=== PATIENT | female | born 1945 | race Caucasian/White ===

== ENCOUNTER 2017-06-29 00:46 | Inpatient (IN) | payer OTHER ==
[~2017-06-29] VITALS: Ht 154.9 cm; Wt 73.5 kg
[2017-06-29] VITALS (7 sets, daily range): BP systolic 132–194; BP diastolic 72–102
[~2017-06-29 00:46] MED LIST: BUPROPION HCL150 M3; CRESTOR5 M1 PO; DETROL LA4 M1 PO; EFFEXOR XR150 M1 PO; EFFEXOR XR75 M1 PO; ESGIC 50-325-41 EACH; LOSARTAN POTASS50 M1 PO; MELATONIN5 M5; NEURONTIN300 M1 PO; NEXIUM20 M1 PO; TYLENOL EXTRA500 M2 PO; ULTRAM50 M1 PO; VESICARE5 M1 PO
[2017-06-29] MEDS ORDERED: TOPAMAX25 M3 PO (07:00)
--- NOTE | 2017-06-29 08:34 | Admission Core Measures ---
Acute Coronary Syndrome (CM) ACS Core Measures Acute Coronary Syndrome Diagnosis No Congestive Heart Failure (NEW) CHF Core Measures Congestive Heart Failure Diagnosis No Cerebrovascular Accident (NEW) CVA Core Measures CVA/TIA Diagnosis No Venous Thromboembolism VTE Core Iliana (View Protocol) VTE Risk Factors Surgery No Mechanical VTE Prophylaxis d/t N/A MechProphylax Ordered No VTE Pharm Prophylaxis d/t NA PharmProphylax ordered Problem List As ranked by this Provider includes Assessment & Plan 1. Osteoarthritis (arthritis due to wear and tear of joints) HOME MEDS Home Med List Acetaminophen (Tylenol Extra Strength) 500 MG TABLET 1 TAB PO TID PAIN ( Reported) Esomeprazole Magnesium (Nexium) 20 MG CAPSULE.DR 1 CAP PO DAILY GASTRIC ( Reported) Gabapentin (Neurontin) 300 MG CAPSULE 1 CAP PO 4 TIMES/DAY PAIN (Reported) Losartan Potassium 50 MG TABLET 1 TAB PO DAILY HTN (Reported) Rosuvastatin Calcium (Crestor) 5 MG TABLET 1 TAB PO DAILY CHOLESTEROL ( Reported) Solifenacin Succinate (Vesicare) 5 MG TABLET 1 TAB PO DAILY OAB (Reported) Tolterodine Tartrate (Detrol LA) 4 MG CAP.ER.24H 1 CAP PO DAILY OAB (Reported ) Topiramate (Topamax) 25 MG TABLET 1 TAB PO EVERY ANNIKA HEADACH (Reported) Tramadol HCl (Ultram) 50 MG TABLET 1 TAB PO Q6P PRN PAIN (Reported) Venlafaxine HCl (Effexor XR) 75 MG CAP.ER.24H 1 CAP PO BED DEPRESSION ( Reported) Venlafaxine HCl (Effexor XR) 150 MG CAP.ER.24H 1 CAP PO BED DEPRESSION ( Reported)
--- NOTE | 2017-06-29 08:37 | Surgical Discharge Summary ---
Visit Information Visit Dates Admission Date: 06/29/17 Discharge Date: 07/02/17 History of Present Illness Chief Complaint: HIP PAIN Surgical History Pertinent Surgical History: hip replacement Review of Systems: SEE HPI Hospital Course Course Attending Physician: Christiano Martin MD Primary Care Physician: Fidel Waller MD Hospital Course: Patient was taken to the operating room on 06/29/17 and underwent a right total hip replacement by Dr. Martin. He did well intraoperatively and was ultimately transferred to the surgical floor in stable condition. Her diet was advanced and her IVF were stopped. Her pain was well controlled. After evaluation by PT , she required cont PT and rehab and was transferred to snf. She will follow up with Dr. Martin in 6 weeks. Allergies: Coded Allergies: aspirin (Intermediate, GI UPSET 06/29/17) ASA PER ANTIBIOTIC ORDER SHEET OF 06/26/17 ([facility]) codeine (Intermediate, ITCHY EARS AND THROAT, N/V 06/29/17) CODEINE PHOSPHATE PER ANTIBIOTIC ORDER SHEET OF 06/26/17 ([facility]) PER SDS ON 06/26/17: PT GETS NAUSEOUS FROM "TOO MUCH" CODEINE, NOT REALLY AN ALLERGY PER SDS ([facility]) Disposition Summary Disposition Principal Diagnosis: primary unilateral osteoarthritis of the hip Additional Diagnosis: sp R GREGOR Discharge Disposition: SNF Discharge Instructions General Discharge Information Code Status: Full Code Patient's Diet: Regular Patient's Activity: as tolerated per PT Follow-Up Instructions/Appts: Dr. Martin- call for follow up appointment (6 week) Medications at Discharge Discharge Medications: Stop taking the following medications: Tramadol HCl (Ultram) 50 MG TABLET ORAL EVERY SIX HOURS NEEDED as needed for PAIN Acetaminophen (Tylenol Extra Strength) 500 MG TABLET ORAL THREE TIMES DAILY Continue taking these medications: Venlafaxine HCl (Effexor XR) 75 MG CAP.ER.24H 1 Capsule ORAL BED Venlafaxine HCl (Effexor XR) 150 MG CAP.ER.24H 1 Capsule ORAL BED Comments: TOTAL DOSE = 225MG DAILY AT BEDTIME Gabapentin (Neurontin) 300 MG CAPSULE 1 Capsule ORAL 4 TIMES A DAY Losartan Potassium (Losartan Potassium) 50 MG TABLET 1 Tablet ORAL DAILY Rosuvastatin Calcium (Crestor) 5 MG TABLET 1 Tablet ORAL DAILY Esomeprazole Magnesium (Nexium) 20 MG CAPSULE.DR 1 Capsule ORAL DAILY Butalb/Acetaminophen/Caffeine (Esgic 50-325-40 MG Tablet) 50 MG-325 MG-40 MG TABLET Instructions: DAILY USE Bupropion HCl (Bupropion HCl Sr) 150 MG TABLET.ER Solifenacin Succinate (Vesicare) 5 MG TABLET 1 Tablet ORAL DAILY Melatonin (Melatonin) 5 MG CAPSULE Tolterodine Tartrate (Detrol LA) 4 MG CAP.ER.24H 1 Capsule ORAL DAILY Topiramate (Topamax) 25 MG TABLET 1 Tablet ORAL EVERY ANNIKA Start taking the following new medications: Hydromorphone HCl (Dilaudid) 2 MG TABLET 1-2 Tablet ORAL EVERY 4 HOURS NEEDED as needed for PAIN Qty = 36 No Refills Aspirin (Aspirin*) 325 MG TABLET 1 Tablet ORAL TWICE DAILY Qty = 56 No Refills Docusate Sodium (Colace) 100 MG CAPSULE 1 Capsule ORAL TWICE DAILY Qty = 14 No Refills Polyethylene Glycol 3350 (Miralax) 17 GRAM POWD.PACK 1 Packet ORAL DAILY Qty = 7 No Refills Instructions: dissolve in water
--- NOTE | 2017-06-29 08:43 | Patient Discharge Instructions ---
Discharge Instructions General Discharge Information You were seen/treated for: unilateral osteoarthritis You had these procedures: total hip replacement-right side Watch for these problems: increased pain, redness of incision, drainage from incision, fevers Other wound care: Please keep wound clean and dry. No ointments or lotions of any type on or near incision at any time. No exceptions. Your dressing will be changed by your nurse on the second day after your surgery. Daily dry dressing changes are recommended each day thereafter. Do not soak your wound in a bath at any time until otherwise indicated by your surgeon. You may shower, please dry wound immediately after shower with a clean towel. Special Instructions: Aspirin: You are taking this medication to help prevent blood clot formation. Please take with food to protect your stomach lining. Please take as directed. Constipation: Pain medication can cause constipation. Dr. Matrin has recommended that you take Colace and miralax each day. You may discontinue this medication if you develop loose stool or diarrhea. If you wish to continue this medication, it is available over the counter. If you are unable to move your bowels after several days, if you are unable to pass gas and are developing bloating, nausea, or vomiting as a result, please contact your doctor. Diet Continue normal diet: Yes Activity Full Activity/No Limits: Yes Activity Self Limited: Yes (per PT recommendations) Acute Coronary Syndrome Inclusion Criteria At DC or during hospital stay patient has or had the following: ACS DIAGNOSIS No Discharge Core Measures Meds if any: Prescribed or Continued at Discharge Meds if any: NOT Prescribed or Continued at Discharge Congestive Heart Failure Inclusion Criteria At DC or during hospital stay patient has or had the following: CHF DIAGNOSIS No Discharge Core Measures Meds if any: Prescribed or Continued at Discharge Meds if any: NOT Prescribed or Continued at Discharge Cerebrovascular accident Inclusion Criteria At DC or during hospital stay patient has or had the following: CVA/TIA Diagnosis No Discharge Core Measures Meds if any: Prescribed or Continued at Discharge Meds if any: NOT Prescribed or Continued at Discharge Venous thromboembolism Inclusion Criteria VTE Diagnosis No VTE Type NONE VTE Confirmed by (Test) NONE Discharge Core Measures - Per Current guidelines, there needs to be overlap - treatment for the first 5 days of Warfarin therapy. - If discharged on Warfarin prior to 5 days of - overlap therapy, the patient will need to be - assessed for post discharge needs including - *Post discharge parental anticoagulation - *Warfarin and/or parental anticoagulation education - *Follow up date to check INR post discharge At least 5 days overlap therapy as Inpatient No Meds if any: Prescribed or Continued at Discharge Note: Overlap Therapy is Warfarin and Anticoagulant Meds if any: NOT Prescribed or Continued at Discharge
[2017-06-29] MEDS ORDERED: MIRALAX17 G1 PO (08:47)
[2017-06-29] MEDS ORDERED: ASPIRIN325 M2 PO (08:47)
[2017-06-29] MEDS ORDERED: COLACE100 M1 PO (08:47)
[2017-06-29] MEDS ORDERED: DILAUDID2 M1 PO (08:47)
--- NOTE | 2017-06-29 10:37 | RADIOLOGY REPORT ---
EXAMINATION: XR HIP, RIGHT CLINICAL INFORMATION: Status post right total hip arthroplasty. COMPARISON: None TECHNIQUE: Two views of the right hip. FINDINGS: Evaluation of the lateral view is limited. However, the total right hip arthroplasty appears intact and anatomic in alignment. No hardware failure or [place] bone fracture is seen. Cerclage wire is noted along the proximal femoral shaft and is intact. A soft tissue drain is seen projected over the superior aspect of the femoral neck. IMPRESSION: Anatomic alignment status post total hip arthroplasty with no hardware failure or [place] bone fracture seen.
--- NOTE | 2017-06-29 13:32 | PN- Orthopedic ---
Subjective Subjective: Patient arrived on surgical floor following total hip replacement. Complaining of pain presently. Denies chest pain, shortness of breath, and difficulty breathing. Denies nausea and vomitting. Has yet to ambulate. Objective Vital Signs and I&Os Vital Signs Date Time Temp Pulse Resp B/P B/P Pulse O2 O2 Flow FiO2 Mean Ox Delivery Rate 06/29 1210 98.0 82 20 132/80 96 Room Air Intake & Output 06/29 1600 06/29 0000 06/28 1600 06/28 0000 Intake Total Output Total Balance Patient 162 lb Weight Weight Reported by Patient Measurement Method Physical Exam: General: Alert and oriented x3, no acute distress Cardiac: RRR, s1s2 Pulm: CTA bilaterally ABD: Soft, non-tender, non-distended Extremities: Moves all extremities, distal sensation intact. Skin warm and well perfused. Bilateral dp pulses palpable. Bilateral calves soft and non- tender. Surgical site: Right hip. Dressing intact, saturated distally with blood leaking from hemovac insertion site. Blood dripping through disruption in adhesion of tegaderm to skin. Saturated gauze removed, redressed around drain site with vaseline gauze and sterile 4x4, topped with tegaderm. Hemovac holds suction. Assessment/Plan Assessment/Plan This is a 72 year old POD 0 s/p R GREGOR -Continue to monitor dressing, reinforce prn, will remove drain likely tomorrow am -OOB, WBAT -Regular diet, advance as tolerated -IV fluids tonight, will dc in am -ASA 325 bid for dvt ppx to start tonight -ABX ppx, ancef x 2 additional doses -Bowel regimen to begin tonight -PO and iv pain regimen -Continue home meds -Will discuss poc with Dr. Martin Core Measures Venous Thromboembolism VTE Risk Factors Surgery No Mechanical VTE Prophylaxis d/t N/A MechProphylax Ordered No VTE Pharm Prophylaxis d/t NA PharmProphylax ordered
--- NOTE | 2017-06-29 15:40 | Operative Report ---
Operative/Inv Procedure Report Surgery Date: 06/29/17 Name of Procedure: Right total hip replacement Pre-Operative Diagnosis: Primary right hip DJD Post-Operative Diagnosis: Same Estimated Blood Loss: 300 Surgeon/[employer] Operator: Veronica POSEY,Christiano Smallwood Anesthesia: block Operative/Procedure Note Note: Description of Procedure: The patient was taken to the operating room and positively identified. After induction of spinal anesthesia and administration of appropriate pre-operative antibiotics, the patient was positioned supine on the operating room table and all bony prominences were well padded. After performing a surgical timeout, the right lower extremity was prepped and draped in the usual sterile fashion. A direct anterior approach was made to the right hip. The incision was carried sharply through superficial soft tissues to the level of the fascia. Meticulous hemostasis was maintained with Bovie electocautery. The fascia over the tensor fascia corinne muscle was opened sharply and the interval between the TFL and the sartorius was entered bluntly taking care to stay lateral to the lateral femoral cutaneous nerve. Retractors were placed around the femoral neck and the pericapsular fat was identified. The ascending branches of the lateral femoral circumflex vessels were identified and carefully coagulated. The pericapsular fat and anterior capsule were then resected. A napkin ring osteotomy was performed and the femoral head was removed without difficulty. Attention was then turned to the acetabulum. After appropriate placement of retractors, the acetabulum was exposed. Soft tissue was cleaned from the acetabular margin and notch. Overhanging osteophytes were removed and the teardrop was exposed. The acetabulum was then sequentially reamed to accept a 54 mm [place] Trident Tritanium hemispherical shell. This was impacted into place in the appropriate position and a single screw was used for supplemental fixation. It was then fit with a 36 mm eccentric Trident X3 zero degree polyethylene insert. Attention was then turned to the femur. After performing the appropriate ligament releases, the proximal femur was exposed. It was then sequentially broached to accept a size #4 Hobson Accolade 2 stem. This was trialed for leg length and stability. A prophylactic Dall-Miles cable was placed. The trial component was removed and the final component was impacted into place. The trunnion was carefully cleaned and fit with a 36 mm, +2.5 Biolox delta ceramic femoral head. The hip was reduced and put through a full range of motion and found to be stable. The articular space was then irrigated with sterile saline. The periarticular soft tissues were infilitrated with Marcaine. The fascial layer was closed with interrupted #1 vicryl suture and the skin was re-approximated with interrupted 2 -0 vicryl. The skin was closed with a running 3-0 V-Lock suture. Steri-strips and a sterile dressing were applied. The patient was awakened and taken to the recovery room in satisfactory condition.
[2017-06-30 02:47] VITALS: BP 160/84
[2017-06-30 06:00] VITALS: BP 154/82
--- NOTE | 2017-06-30 07:22 | PN- Orthopedic ---
Subjective Subjective: Patient doing fairly well this morning. She is due to work with physical therapy, and has not been out of bed yet. Pain is fairly well-controlled, feels like there could be better control. She is tolerating a regular diet without any difficulty. She denies any other issues or complaints. Objective Vital Signs and I&Os Vital Signs Date Time Temp Pulse Resp B/P B/P Pulse O2 O2 Flow FiO2 Mean Ox Delivery Rate 06/30 06 98.7 91 20 154/82 93 Room Air 06/30 0247 98.7 106 20 160/84 95 Room Air 06/30 0109 84 192/102 06/29 2323 194/102 06/29 2200 97.6 84 18 182/90 97 Room Air 06/29 1800 97.5 74 20 150/80 94 Room Air 06/29 1600 97.4 76 20 146/82 94 Room Air 06/29 1457 98.7 72 20 136/72 93 04/ 1210 98.0 82 20 132/80 96 Room Air 06/29 1145 98.0 82 20 132/80 96 Room Air Intake & Output 06/30 0806/30 0000 06/29 1600 06/29 0800 06/29 0000 06/28 1600 Intake Total 425 800 Output Total 665 300 Balance -240 500 Intake, IV 225 Intake, Oral 200 800 Output, 15 Drainage Output, Urine 650 300 Patient 162 lb Weight Weight Reported by Patient Measurement Method Physical Exam: General: Alert, awake, no acute distress Right hip: Dressing is moderately saturated with serous and serosanginous strikethrough, HV in place draining sanginous fluid Extremities: Neurovascular status is intact and equal bilaterally, no clubbing, cyanosis, or edema Current Medications: Current Medications Sig/Shefali Start time Last Medication Dose Route Stop Time Status Admin Acetaminophen 1,000 MG Q6H 06/29 1945 AC 06/30 IV 06/30 0746 0701 Acetaminophen 1,000 MG Q6 06/29 1200 DC 06/29 IV 06/30 0601 1345 Acetaminophen 975 MG ONCE 06/29 0000 DC PO 06/29 2359 Aspirin 325 MG BID 06/29 2199 AC 06/29 PO 2158 Atorvastatin Calcium 20 MG 1700 06/29 1700 AC 06/29 PO 1712 Bupropion HCl 150 MG DAILY 06/30 1000 AC PO Cefazolin Sodium 2 GM IQ8 06/29 1600 DC 06/29 N/A 1 UNIT IV 06/30 0029 2344 Cefazolin Sodium 2,000 MG ONCE 06/29 0000 DC IV 06/29 2359 Docusate Sodium 100 MG BID 06/29 2199 AC 06/29 PO 2158 Gabapentin 300 MG Q8 06/29 1400 AC 06/30 PO 0700 Hydromorphone HCl 2 MG Q4P PRN 06/29 1145 AC PO Hydromorphone HCl 4 MG Q4P PRN 06/29 1145 AC 06/29 PO 2158 Ketorolac 30 MG .STK-MED ONE 06/29 182 DC Tromethamine IM 06/29 182 Ketorolac 15 MG Q8P PRN 06/29 181 AC 06/30 Tromethamine IV 0347 Losartan Potassium 50 MG DAILY 06/30 1000 DC PO Losartan Potassium 50 MG DAILY 06/29 2345 AC 06/30 PO 0109 Melatonin 5 MG AT BEDTIME 06/29 2199 AC 06/29 PO 2157 Morphine Sulfate 2 MG Q4P PRN 06/29 2345 AC 06/29 IV 2344 Morphine Sulfate 2 MG Q4P PRN 06/29 1145 DC 06/29 IV 1711 Omeprazole 20 MG DAILY AC 06/30 0700 AC 06/30 PO 0700 Ondansetron HCl 4 MG Q6P PRN 06/29 1145 AC IV Oxybutynin Chloride 2.5 MG BID 06/29 2199 AC 06/29 PO 2157 Oxycodone HCl 10 MG ONCE 06/29 0000 DC PO 06/29 2359 Polyethylene Glycol 17 GM DAILY 06/30 1000 AC PO Senna 187 MG AT BEDTIME 06/29 2199 AC 06/29 PO 2158 Sodium Chloride 1,000 ML .[id number] 06/29 1145 AC 06/30 IV 0109 Topiramate 25 MG QPM 06/29 2199 AC 06/29 PO 2158 Venlafaxine HCl 225 MG QPM 06/29 220 AC 06/29 PO 2035 Results Last 48 Hours of Labs: Laboratory Tests 06/303 Chemistry Sodium (137 - 145 mmol/L) 138 Potassium (3.5 - 5.1 mmol/L) 3.2 L Chloride (98 - 107 mmol/L) 103 Carbon Dioxide (22 - 30 mmol/L) 24 Anion Gap (5 - 16) 10 BUN (7 - 17 mg/dL) 11 Creatinine (0.5 - 1.0 mg/dL) 0.5 Estimated GFR (>60 ml/min) > 60 BUN/Creatinine Ratio (7 - 25 %) 22.0 Phosphorus (2.5 - 4.5 mg/dL) 3.4 Magnesium (1.6 - 2.3 mg/dL) 1.5 L Hematology CBC w Diff NO MAN DIFF REQ WBC (4.8 - 10.8 /CUMM) 7.4 RBC (4.20 - 5.40 /CUMM) 3.05 L Hgb (12.0 - 16.0 G/DL) 10.3 L Hct (37 - 47 %) 29.8 L MCV (81.0 - 99.0 FL) 97.7 MCH (27.0 - 31.0 PG) 33.7 H MCHC (33.0 - 37.0 G/DL) 34.5 RDW (11.5 - 14.5 %) 14.0 Plt Count (130 - 400 /CUMM) 202 MPV (7.4 - 10.4 FL) 6.9 L Gran % (42.2 - 75.2 %) 70.7 Lymphocytes % (20.5 - 51.1 %) 10.7 L Monocytes % (1.7 - 9.3 %) 17.7 H Eosinophils % (0 - 5 %) 0.6 Basophils % (0.0 - 2.0 %) 0.3 Absolute Granulocytes (1.4 - 6.5 /CUMM) 5.3 Absolute Lymphocytes (1.2 - 3.4 /CUMM) 0.8 L Absolute Monocytes (0.10 - 0.60 /CUMM) 1.3 H Absolute Eosinophils (0.0 - 0.7 /CUMM) 0 Absolute Basophils (0.0 - 0.2 /CUMM) 0 Recent Imaging Studies: Right Hip X-ray 06/29/17: Anatomic alignment status post total hip arthroplasty with no hardware failure or [place] bone fracture seen. Assessment/Plan Assessment/Plan This is a 72-year-old female with a past medical history significant for osteoarthritis, gerd, depression, htn and hyperlipidemia who is postoperative day #1 status post right total hip arthroplasty, progressing well. 1. PT evaluation, weight bearing as tolerated with a rolling walker, anticipate DC home with VNA and physical therapy tomorrow or 2. Continue current analgesia and bowel regimen 3. Continue Aspirin 325mg twice a day for DVT prophylaxis along with pneumatic compression boots 4. Continue regular diet 5. Continue Hemovac, monitor quality and quantity of output 6. Dressing change by the surgical team tomorrow 7. Home medications restarted 8. Potassium and Magnesium replaced will recheck in am 8. Patient to be discussed with Dr. Martin to make sure he is in agreement with the plan of care Problem List: 1. Osteoarthritis (arthritis due to wear and tear of joints) Core Measures Venous Thromboembolism VTE Risk Factors Surgery No Mechanical VTE Prophylaxis d/t N/A MechProphylax Ordered No VTE Pharm Prophylaxis d/t NA PharmProphylax ordered
[2017-06-30 08:26] LABS: ABSOLUTE BASOPHIL COUNT 0 /CUMM (0.0-0.2); ABSOLUTE EOSINOPHIL COUNT 0 /CUMM (0.0-0.7); ABSOLUTE GRANULOCYTE CT 5.3 /CUMM (1.4-6.5); ABSOLUTE LYMPH COUNT 0.8 /CUMM (1.2-3.4); ABSOLUTE MONOCYTE COUNT 1.3 /CUMM (0.10-0.60); BASOPHIL % 0.3 % (0.0-2.0); EOSINOPHIL % 0.6 % (0-5); GRANULOCYTE % 70.7 % (42.2-75.2); HEMATOCRIT 29.8 % (37-47); MEAN CORPUSCULAR HGB 33.7 PG (27.0-31.0); MEAN CORPUSCULAR HGB CONC 34.5 G/DL (33.0-37.0); MEAN CORPUSCULAR VOLUME 97.7 FL (81.0-99.0); MEAN PLATELET VOLUME 6.9 FL (7.4-10.4); PLATELET COUNT 202 /CUMM (130-400); RED BLOOD CELL CT 3.05 /CUMM (4.20-5.40); WHITE BLOOD CELL COUNT 7.4 /CUMM (4.8-10.8)
[2017-06-30 14:24] VITALS: BP 126/72
[2017-06-30 22:08] VITALS: BP 120/60
[2017-07-01 06:53] VITALS: BP 140/76
--- NOTE | 2017-07-01 08:02 | PN- Orthopedic ---
Subjective Subjective: feeling ok, pain well controlled w meds, ambulated w pt yesterday. kassi diet, no n/v, no cp/sob. no paresthesias. Objective Vital Signs and I&Os Vital Signs Date Time Temp Pulse Resp B/P B/P Pulse O2 O2 Flow FiO2 Mean Ox Delivery Rate 07/01 0653 98.3 86 20 140/76 92 Room Air 06/30 2208 98.6 91 19 120/60 94 Room Air 06/30 1424 98.3 74 18 126/72 92 Room Air 06/30 0951 98.7 91 20 154/82 Intake & Output 07/01 1600 07/01 0800 07/01 0000 06/30 1600 06/30 0800 06/30 0000 Intake Total 250 250 950 705 425 Output Total 300 305 665 Balance 250 250 650 400 -240 Intake, IV 10 10 150 525 225 Intake, Oral 240 240 800 180 200 Output, 5 15 Drainage Output, Urine 300 300 650 Physical Exam: GEN- NAD CARD- s1s2 RRR PULM- CTAB ABD- soft nt EXT- r hip dressing w dry serosang drainage, incision w blood stained steris ( dried), [address] superior aspect of wound, scant serosang draiange from hv site inferior to wound. extensive ecchymosis venessa-incisional and dependent to buttock/posterior thigh. calves soft nt bl, palp dp bl, gross sensate intact, gross plantar/dorsiflexion intact. clean dry dressing reapplied Results Last 48 Hours of Labs: Laboratory Tests 07/01 06/30 0730 0753 Chemistry Sodium (137 - 145 mmol/L) 138 Potassium (3.5 - 5.1 mmol/L) Pending 3.2 L Chloride (98 - 107 mmol/L) 103 Carbon Dioxide (22 - 30 mmol/L) 24 Anion Gap (5 - 16) 10 BUN (7 - 17 mg/dL) 11 Creatinine (0.5 - 1.0 mg/dL) 0.5 Estimated GFR (>60 ml/min) > 60 BUN/Creatinine Ratio (7 - 25 %) 22.0 Phosphorus (2.5 - 4.5 mg/dL) 3.4 Magnesium (1.6 - 2.3 mg/dL) Pending 1.5 L Hematology CBC w Diff NO MAN DIFF REQ WBC (4.8 - 10.8 /CUMM) 7.4 RBC (4.20 - 5.40 /CUMM) 3.05 L Hgb (12.0 - 16.0 G/DL) 10.3 L Hct (37 - 47 %) 29.8 L MCV (81.0 - 99.0 FL) 97.7 MCH (27.0 - 31.0 PG) 33.7 H MCHC (33.0 - 37.0 G/DL) 34.5 RDW (11.5 - 14.5 %) 14.0 Plt Count (130 - 400 /CUMM) 202 MPV (7.4 - 10.4 FL) 6.9 L Gran % (42.2 - 75.2 %) 70.7 Lymphocytes % (20.5 - 51.1 %) 10.7 L Monocytes % (1.7 - 9.3 %) 17.7 H Eosinophils % (0 - 5 %) 0.6 Basophils % (0.0 - 2.0 %) 0.3 Absolute Granulocytes (1.4 - 6.5 /CUMM) 5.3 Absolute Lymphocytes (1.2 - 3.4 /CUMM) 0.8 L Absolute Monocytes (0.10 - 0.60 /CUMM) 1.3 H Absolute Eosinophils (0.0 - 0.7 /CUMM) 0 Absolute Basophils (0.0 - 0.2 /CUMM) 0 Assessment/Plan Assessment/Plan A- POD2 sp R GREGOR, minor lyte imbalances yesterday- repleted, otherwise stable. P- OOB, WBAT, PT DC planning- likely hhs lytes pending, replete as needed ASA 325BID, alps prn apin meds reg diet reinforce dressing prn will dw attending Core Measures Venous Thromboembolism VTE Risk Factors Surgery No Mechanical VTE Prophylaxis d/t N/A MechProphylax Ordered No VTE Pharm Prophylaxis d/t NA PharmProphylax ordered
[2017-07-01 14:20] VITALS: BP 134/70
[2017-07-01 22:36] VITALS: BP 104/66
[2017-07-02 06:28] VITALS: BP 132/70
--- NOTE | 2017-07-02 07:46 | PN- Orthopedic ---
Subjective Subjective: PT IUN BED. WORKED WITH PT AND DID STAIRS YESTERDAY. TOLERATING DIET, VOIDING. PT SAYS SHE DOESNT HAVE THE CONFIDENCE YET TO GO HOME TODAY. DENIES FEVERS, CP, SOB Objective Vital Signs and I&Os Vital Signs Date Time Temp Pulse Resp B/P B/P Pulse O2 O2 Flow FiO2 Mean Ox Delivery Rate 07/02 0628 98.5 80 18 132/70 93 Room Air 07/02 0045 92 Nasal 1.5L Cannula 07/01 2236 98.7 76 18 104/66 92 Room Air 07/01 1420 98.9 89 20 134/70 92 Room Air 07/01 1033 86 140/76 Intake & Output 07/02 0800 07/02 0000 07/01 1600 07/01 0807/01 0000 06/30 1600 Intake Total 250 1000 250 250 950 Output Total 300 Balance 250 1000 250 250 650 Intake, IV 10 10 10 150 Intake, Oral 240 1000 240 240 800 Output, Urine 300 Physical Exam: GEN- CELIA RESP-CLEAR CARDIAC-RRR ABD- +BS, SOFT, NT EXT- RIGHT HIP SOFT, DRESSING CHANGED, NO SIGNS OF INFECTION. 2+ DP PULSE BILATERALLY. DISTAL SENSORY AND MOTOR FUNCTION INTACT Current Medications: Current Medications Sig/Shefali Start time Last Medication Dose Route Stop Time Status Admin Aspirin 325 MG BID 06/29 2199 AC 07/01 PO 2111 Atorvastatin Calcium 20 MG 1700 06/29 1700 AC 07/01 PO 1816 Bupropion HCl 150 MG DAILY 06/30 1000 AC 07/01 PO 103 Docusate Sodium 100 MG BID 06/29 2199 AC 07/01 PO 2112 Gabapentin 300 MG Q6 06/30 1200 AC 07/02 PO 0513 Hydromorphone HCl 2 MG Q4P PRN 06/29 1145 AC PO Hydromorphone HCl 4 MG Q4P PRN 06/29 1145 AC 07/02 PO 0513 Ketorolac 15 MG .STK-MED ONE 07/01 182 DC Tromethamine IM 07/01 182 Ketorolac 15 MG Q8P PRN 06/29 181 AC 07/01 Tromethamine IV 182 Losartan Potassium 50 MG DAILY 06/29 2345 AC 07/01 PO 1033 Melatonin 5 MG AT BEDTIME 06/29 2199 AC 07/01 PO 211 Morphine Sulfate 2 MG Q4P PRN 06/29 2345 AC 06/29 IV 2344 Omeprazole 20 MG DAILY AC 06/30 0700 AC 07/02 PO 0513 Ondansetron HCl 4 MG Q6P PRN 06/29 1145 AC IV Oxybutynin Chloride 2.5 MG BID 06/29 2199 AC 07/01 PO 2111 Polyethylene Glycol 17 GM DAILY 06/30 1000 AC 07/01 PO 1034 Senna 187 MG AT BEDTIME 06/29 2199 AC 07/01 PO 2113 Topiramate 25 MG QPM 06/29 2199 AC 07/01 PO 2113 Venlafaxine HCl 225 MG QPM 06/29 2199 AC 07/01 PO 2112 Results Last 48 Hours of Labs: Laboratory Tests 07/01 06/30 0730 0753 Chemistry Sodium (137 - 145 mmol/L) 138 Potassium (3.5 - 5.1 mmol/L) 3.8 3.2 L Chloride (98 - 107 mmol/L) 103 Carbon Dioxide (22 - 30 mmol/L) 24 Anion Gap (5 - 16) 10 BUN (7 - 17 mg/dL) 11 Creatinine (0.5 - 1.0 mg/dL) 0.5 Estimated GFR (>60 ml/min) > 60 BUN/Creatinine Ratio (7 - 25 %) 22.0 Phosphorus (2.5 - 4.5 mg/dL) 3.4 Magnesium (1.6 - 2.3 mg/dL) 1.8 1.5 L Hematology CBC w Diff NO MAN DIFF REQ WBC (4.8 - 10.8 /CUMM) 7.4 RBC (4.20 - 5.40 /CUMM) 3.05 L Hgb (12.0 - 16.0 G/DL) 10.3 L Hct (37 - 47 %) 29.8 L MCV (81.0 - 99.0 FL) 97.7 MCH (27.0 - 31.0 PG) 33.7 H MCHC (33.0 - 37.0 G/DL) 34.5 RDW (11.5 - 14.5 %) 14.0 Plt Count (130 - 400 /CUMM) 202 MPV (7.4 - 10.4 FL) 6.9 L Gran % (42.2 - 75.2 %) 70.7 Lymphocytes % (20.5 - 51.1 %) 10.7 L Monocytes % (1.7 - 9.3 %) 17.7 H Eosinophils % (0 - 5 %) 0.6 Basophils % (0.0 - 2.0 %) 0.3 Absolute Granulocytes (1.4 - 6.5 /CUMM) 5.3 Absolute Lymphocytes (1.2 - 3.4 /CUMM) 0.8 L Absolute Monocytes (0.10 - 0.60 /CUMM) 1.3 H Absolute Eosinophils (0.0 - 0.7 /CUMM) 0 Absolute Basophils (0.0 - 0.2 /CUMM) 0 Assessment/Plan Assessment/Plan A- POD3 sp R GREGOR, minor lyte imbalances yesterday- repleted, otherwise stable. P- OOB, WBAT, PT ASA 325BID, alps prn apin meds reg diet reinforce dressing prn possibly dc later today or tomorrow will fredo attending Core Measures Venous Thromboembolism VTE Risk Factors Surgery No Mechanical VTE Prophylaxis d/t N/A MechProphylax Ordered No VTE Pharm Prophylaxis d/t NA PharmProphylax ordered
[2017-07-02 14:31] VITALS: BP 110/85
[2017-07-02 17:07] VITALS: BP 110/85
== END 2017-07-02 17:23 | DRG 470 ==
LOC: SDA 00:46 → ENRESERV 10:29 → ENTRNSPT 10:50 → EDTRNSPT 11:29 → EDTRNSPTSTS 11:29 → 2NA 11:37 → CMPTRNSPT 11:47 → ENPENDDIS 07-02 15:36 → 2NA 07-02 17:23
PROVIDERS: Physician Assistant Surgical
PROC: 0SR904A Replacement of Right Hip Joint with Ceramic on Polyethylene Synthetic Substitute, Uncemented, Open Approach (ICD-10-PCS; principal; 2017-06-29)
DX: M16.11 Unilateral primary osteoarthritis, right hip (principal); F11.20 Opioid dependence, uncomplicated; F32.9 Major depressive disorder, single episode, unspecified; G43.909 Migraine, unspecified, not intractable, without status migrainosus; I10 Essential (primary) hypertension; K21.9 Gastro-esophageal reflux disease without esophagitis; K27.9 Peptic ulcer, site unspecified, unspecified as acute or chronic, without hemorrhage or perforation; Z90.49 Acquired absence of other specified parts of digestive tract; Z96.641 Presence of right artificial hip joint; Z96.612 Presence of left artificial shoulder joint; Z96.611 Presence of right artificial shoulder joint; Z88.5 Allergy status to narcotic agent
CPT/HCPCS: 2NAP; 36415; 36592; 73502-RT; 82436; 88304; 97110-GO; 97116-GO; 97161-GP; 97530-GO; J0131; J0690; J0735; J1885; J2405; J3490